=== PATIENT | male | born 1970 | race Caucasian/White ===

== ENCOUNTER 2017-03-23 15:29 | Emergency (ER) | payer MEDICAID ==
[~2017-03-23] VITALS: Ht 180.3 cm; Wt 69.9 kg
[2017-03-23 15:44] VITALS: BP 134/89
[2017-03-23] MEDS ORDERED: KETOROLAC 30 MG/1 ML ONE (17:51)
[2017-03-23] MEDS ORDERED: HYDROmorphone 2 MG/ML, 1ML ONE (17:51)
[2017-03-23] MEDS ORDERED: HYDROmorphone 2 MG/ML, 1ML IM ONE (18:30)
[2017-03-23] MEDS ORDERED: KETOROLAC 30 MG/1 ML IM ONE (18:30)
== END 2017-03-23 18:47 | disposition home or self-care (01) ==
LOC: ED 18:30
DX: S43.52XA Sprain of left acromioclavicular joint, initial encounter (principal); S39.012A Strain of muscle, fascia and tendon of lower back, initial encounter; S29.012A Strain of muscle and tendon of back wall of thorax, initial encounter; F17.210 Nicotine dependence, cigarettes, uncomplicated; X58.XXXA Exposure to other specified factors, initial encounter; Y93.89 Activity, other specified; Y92.89 Other specified places as the place of occurrence of the external cause; Y99.8 Other external cause status
CPT/HCPCS: 72072; 72110; 73030; 96372; 99284; J1170; J1885

== ENCOUNTER 2019-03-17 12:52 | Emergency (ER) | payer MEDICAID ==
[~2019-03-17] VITALS: Ht 180.3 cm; Wt 79.4 kg
[2019-03-17 13:02] VITALS: BP 111/65
[2019-03-17] MEDS ORDERED: HYDROcodone/APAP 5/325 TABLET PO ONE (13:30)
--- NOTE | 2019-03-17 13:30 | NUR ---
PATIENT HAD LEFT PRIOR TO MEDICATING.
== END 2019-03-17 13:42 | disposition home or self-care (01) ==
LOC: ED 13:30
DX: G89.11 Acute pain due to trauma (principal); M25.511 Pain in right shoulder; M25.531 Pain in right wrist; X58.XXXA Exposure to other specified factors, initial encounter; Y93.89 Activity, other specified; Y92.89 Other specified places as the place of occurrence of the external cause; Y99.8 Other external cause status
CPT/HCPCS: 99282